=== PATIENT | male | born 2000 | race Caucasian/White ===

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

== ENCOUNTER 2019-02-11 03:59 | Emergency (ER) | payer OTHER ==
[~2019-02-11] VITALS: Ht 188 cm; Wt 79.4 kg
== END 2019-02-11 08:22 | disposition home or self-care (01) ==
LOC: ER 03:59
DX: R51 Headache (principal)